=== PATIENT | female | born 1955 | race Caucasian/White ===

== ENCOUNTER → 2018-10-08 | Outpatient (CLI) | payer OTHER ==
[~2018-10-08] MED LIST: REGADENOSON 0.4 MG/5 ML DISP.SYRIN. IV ONE
--- NOTE | 2018-10-08 09:13 | PCVCIMAG ---
APPROVED REPORT Study performed: 10/08/2018 08:22:59 EXAM: Comprehensive 2D, Doppler, and color-flow Echocardiogram Patient Location: Echo lab Status: routine BSA: 1.61 HR: 48 bpmBP: 136/80 mmHg Rhythm: Bradycardia Other Information Study Quality: Good Risk Factors: Cardiac Risk Factors: HTN, Hyperlipidemia Indications Chest Pain 2D Dimensions IVSd: 8.11 (7-11mm)LVOT Diam: 19.00 (18-24mm) LVDd: 45.19 mm PWd: 6.76 (7-11mm)Ascending Ao: 31.23 (22-36mm) LVDs: 35.07 (25-40mm) Left Atrium: 37.30 (27-40mm) Aortic Root: 25.96 mm LV Single Plane 4CH: 63.98 % LV Single Plane 2CH: 65.94 % Biplane EF: 65.1 % Volumes Left Atrial Volume (Systole) Single Plane 4CH: 38.93 mLSingle Plane 2CH: 31.10 mL LA ESV Index: 22.00 mL/m2 Aortic Valve AoV Peak Jhoan.: 1.46 m/s AO Peak Gr.: 8.57 mmHgLVOT Max P.75 mmHg LVOT Max V: 1.09 m/s JUSTYNA Vmax: 2.02 cm2 AI Vmax: 4.19 m/s AI Limestone: 1.65 m/s2 AI PHT: 739.73 ms Mitral Valve E/A Ratio: 0.7 MV Decel. Time: 211.06 ms MV E Max Jhoan.: 0.79 m/s MV A Jhoan.: 1.10 m/s IVRT: 55.36 ms TDI E/Lateral E': 9.88E/Medial E': 9.88 Medial E' Jhoan.: 0.08 m/s Lateral E' Jhoan.: 0.08 m/s Pulmonary Valve PV Peak Jhoan.: 0.89 m/sPV Peak Gr.: 3.16 mmHg Pulmonary Vein P Vein S: 0.57 m/sP Vein A: 0.36 m/s P Vein D: 0.66 m/sP Vein A Dur.: 138.4 msec P Vein S/D Ratio: 0.86 Tricuspid Valve TR Peak Jhoan.: 2.78 m/sRAP Estimate: 7.00 mmHg TR Peak Gr.: 30.82 mmHg PA Pressure: 38.00 mmHg Left Ventricle The left ventricle is normal size. There is normal LV segmental wall motion. There is normal left ventricular wall thickness. Left ventricular systolic function is normal. The left ventricular ejection fraction is within the normal range. LVEF is 60-65%. Mild diastolic dysfunction is present (impaired relaxation pattern). Right Ventricle The right ventricle is normal size. The right ventricular systolic function is normal. Atria The left atrium size is normal. The right atrium size is normal. Aortic Valve The aortic valve is trileaflet, minimally sclerotic. Mild aortic regurgitation. There is no aortic valvular stenosis. Mitral Valve The mitral valve is normal in structure. Mild mitral regurgitation. No evidence of mitral valve stenosis. Tricuspid Valve The tricuspid valve is normal in structure. Mild to moderate tricuspid regurgitation. Pulmonary artery pressure is 38 mmHg. Pulmonic Valve The pulmonary valve is normal in structure. Trace pulmonic regurgitation. Great Vessels The aortic root is normal in size. IVC is normal in size and collapses >50% with inspiration. Pericardium There is no pericardial effusion. <Conclusion> Left ventricular systolic function is normal. There is normal LV segmental wall motion. LVEF is 60-65%. Mild diastolic dysfunction The aortic valve is trileaflet, minimally sclerotic. Mild aortic regurgitation, no stenosis The mitral valve is normal in structure. Mild mitral regurgitation. Mild to moderate tricuspid regurgitation. Pulmonary artery pressure of 38 mmHg. There is no pericardial effusion.
--- NOTE | 2018-10-08 16:13 | PCVCIMAG ---
APPROVED REPORT Imaging Protocol: Rest Tc-99m/Stress Tc-99m 1 day Study performed: 10/08/2018 09:07:16 Indication: Chest pain Patient Location: Out-Patient Stress Nurse: Haleigh Hadley RN, Christa Abdi RN [place] Tech:Laura FuentesOLU vallecilloMT Ht: 5 ft 3 in Wt: 134 lbs BSA: 1.63 m2 HR: 50 bpm BP: 170/79 mmHg BMI: 23.7 Rhythm: Sinus Bradycardia Medical History Medical History: HTN, Hyperlipidemia Medications: Bystolic, Omeprazole, HCTZ Allergies: PCN Cardiac Risk Factors: Age Pretest Chest Pain Characteristics: No chest pain Exercise History: Indeterminate Physical Disabilities: Neuropathy Resting Data Rest SPECT myocardial perfusion imaging was performed in supine position 45 minutes following the intravenous injection of 10.8 mCi of Tc-99m Sestamibi. Time of rest injection: 919 Date: 10/08/2018 Administration Route: IV Administration Site: Left AC Pharmacologic Stress Pharmacologic stress test was performed by injecting Regadenoson 0.4 mg IV push over 10-15 seconds immediately followed by the intravenous injection of 33.1 mCi of Tc-99m Sestamibi. Time of stress injection: 1050 Date: 10/08/2018 Administration Route: IV Administration Site: Left AC Gated Stress SPECT was performed 45 minutes after stress injection. The images were gated to evaluate regional wall motion and calculate left ventricular ejection fraction. Stress Test Details Stress Test: Pharmacologic stress was paired with low level exercise. Reason for pharmacologic stress test: Neuropathy. HRMax Heart Rate (APMHR): 157 bpm Resting HR: 50 bpmTarget HR (85% APMHR): 133 bpm Max HR Achieved: 85 bpm % of APMHR: 54 Recovery HR: 65 bpm BP Resting BP: 170/79 mmHg Max BP: 168/80 mmHg Recovery BP: 136/65 mmHg ECG Resting ECG: Sinus Bradycardia Stress ECG: Normal Sinus Rhythm, Nonspecific ST-T abnormalities ST Change: None Maximum ST Deviation: 0 mm Arrhythmia: VPC's Recovery ECG: Sinus Rhythm, nonspecific ST-T abnormalities Recovery ST Change: None Recovery ST Deviation: 0 mm Recovery Arrhythmia: None Clinical Reason for Termination: Completed protocol Stress Symptoms: Lightheaded Exercise duration: 4 min 00 sec Exercise capacity: 1.6 METs Symptoms resolved during recovery. Stress ECG Conclusion ECG: Non-ischemic Clinical: Non-ischemic Study Quality Study: Good Study Data Post stress, the left ventricular ejection was 67%.. SSS: 1 SRS: 1 SDS: 1 TID = 1.18. Perfusion No evidence of stress induced ischemia or prior myocardial infarction. Wall Motion Normal left ventricular size and function with no regional wall motion abnormalities. Nuclear Conclusion No evidence of stress induced ischemia or prior myocardial infarction. Normal left ventricular size and function with no regional wall motion abnormalities. Post stress, the left ventricular ejection was 67%. No prior study available for comparison. Interpreted by: Edd East MD Electronically Approved: 10/08/2018 16:04:46 <Conclusion> ECG: Non-ischemic Clinical: Non-ischemic
== END | disposition home or self-care (01) ==
LOC: PCVCIMAG 08:22
PROVIDERS: ATTEND Internal Medicine
DX: I08.3 Combined rheumatic disorders of mitral, aortic and tricuspid valves (principal); R07.9 Chest pain, unspecified; R07.2 Precordial pain
CPT/HCPCS: 78452; 93017; 93306; A9500; J2785